=== PATIENT | female | born 1975 ===

== ENCOUNTER 2018-09-06 16:00 | Emergency (ER) | payer OTHER ==
[2016-10-22 08:04] VITALS: BMI 23.8
[2018-09-06 21:19] VITALS: BP 118/89; PULSE 120; RESP 18; TEMP 98.7
--- NOTE | 2018-09-07 00:18 | OBHP ---
Datetime: 09/06/2018 17:13 IP Adm Impression: Term, intrauterine ; No Active Labor; Intact Membranes IP Chief Complaint Other: sent for NST by doctor Theo IP Admit Plan: Discharge home Admit Comment, IP Provider: 43 year old female presents at 37 weeks gestation dated by LMP ( 12/21/17) for NST secondary to chronic HTN, AMA, previous . ANGELINE: 09/27/18. Patient reports movement this morning. Denies contractions, rupture of membranes and vaginal bleeding. Patient has no complaints at this time. Denies nausea, vomiting, fever, chills, blurred vision, spots, RUQ ab dominal pain, generalized edema. OB Hx: 2004: 37week female, 4lbs 5oz, , [facility] 2009 39 week 7lb male for arrest of decent, [facility] 2016, 6weeks, spontaneous , No D_C 2017: 23.4 weeks twins, Female x2, spontaneous , No D_C Obgyn: Dr. 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 - NST, no abnormalities - US, shows breech presentation - will speak with Dr Venegas - plan to discharge Pt seen, examined, assessment and plan discussed with Dr Leeroy Gutiérrez PGY1, Internal Medicine Resident Attending Note: patient seen, evaluated and examined by me with the Resident Patient is predominan tly Latvian-speaking, [id number] can capper ID [id number]. I agree with the above. Limited bedside ultrasound - confirms Breech preech presentation. Patient found to be with breech presentation in office today. To this end, will have repeat C/S at 39 weeks. All else as above. - Spoke with Dr. Venegas: advised her of Category 1 tracing and normal BPs on L_D; range 118-128/7 [id number], after first reading fo 147/97. Per Dr. Venegas, discharge home; follow up, 03/21. Plan: 1) dishcarge home 2) Reviewed S/S pre-eclampsia and labor 3) Keep appontment for 09/08/18 Pelvic Type - PN: Not Done Extremities - PN: Normal Abdomen - PN: Normal Back - PN: Normal Breast - PN: Not Done Lungs - PN: Normal Heart - PN: Normal Thyroid - PN: Normal Neurologic - PN: Normal HEENT - PN: Normal General - PN: Normal Presentation-Admit: Breech FHR - Baseline A Provider: 135 Contraction Comments Provider: none Comments, ACOG Physical Exam: Abdomen: Gravid. Soft. Non tender in all quadrants. Fundal height 36 c m Extremiites: no calf tenderness or edema. bilaterally All other systems reviewed and are negative Gestation - Est Wks by US: 37.5 IP Hx Assessment: The History has been Reviewed and is Current EGA AdmitDate IP: 37.0 Vital Signs Provider: Reviewed; Within Normal Limits IP Chief Complaint: evaluation NICHD Variability Prov Fetus A: Moderate 6-25bpm NICHD Accel Fetus A IP Provider: 15X15 FHR Category Provider Fetus A: Category I NICHD Decel Fetus A IP Provider: None Dilatation, Provider: deferred Genitourinary Exam: Not Done DTRs - PN: Normal
== END 2018-09-06 17:18 | disposition home or self-care (01) ==
LOC: C.EROB 16:00
DX: Z36.9 Encounter for antenatal screening, unspecified (principal); O16.3 Unspecified maternal hypertension, third trimester; Z3A.37 37 weeks gestation of pregnancy

== ENCOUNTER 2018-09-20 08:32 | Inpatient (IN) | payer OTHER ==
[2018-09-20 08:52] VITALS: BMI 31.1
[2018-09-20] MEDS ORDERED: Lactated Ringer's 1,000 ML IV ONE (09:20)
[2018-09-20] MEDS ORDERED: cefOXitin IV 2 gm in Dextrose 2 GM/50 ML BAG IVPB ONE (09:20)
[2018-09-20] MEDS ORDERED: Sodium Citrate/Citric Acid 15 ml Sol PO ONE (09:20)
--- NOTE | 2018-09-20 09:28 | CP.PCM.HP ---
History of Present Illness - History of Present Illness History of Present Illness: Mathew Peterson, DO, PGY-1 HEALTH CONSULTANT Admission History and Physical for Dr. Theo Green is a 43 who presents for elective caesarean delivery. She currently reports some abdominal pain with mild contractions. She otherwise offers no complaints and denies nausea/vomiting, CP, SOB, DYSON, changes in vision, vaginal bleeding, vaginal discharge. PMH: none Ob Hx: 4 prior pregnancies, 1st delivered by , 2nd delivered by c/s, 3rd had spontaneous at 6 weeks, 4th had twins with spontaneous at 23 weeks Data Abstractor Hx: No hx of STD, monogamous with , menstrual periods every 28 days and were regular prior to pregnancies PSH: c/s x 1 Fam Hx: father is alive and has hx of liver disease, mother All: NKA No home medications Present on Admission - Present on Admission Any Indicators Present on Admission: No History of DVT/PE: No History of Uncontrolled Diabetes: No Urinary Catheter: No Decubitus Ulcer Present: No Review of Systems - Constitutional Constitutional: absent: Chills, Fever - EENT Eyes: absent: Change in Vision - Cardiovascular Cardiovascular: absent: Chest Pain, Claudication, Diaphoresis, Dyspnea, Palpitations - Respiratory Respiratory: absent: Cough, Dyspnea, Wheezing - Gastrointestinal Gastrointestinal: Abdominal Pain (consistent with contractions). absent: Nausea, Vomiting - Reproductive: Female Reproductive:Female: absent: Vaginal Discharge - Menstruation Menstruation: absent: Abnormal Vaginal Bleeding - Integumentary Integumentary: absent: Alopecia Past Patient History - Infectious Disease Hx of Infectious Diseases: None - Past Social History Smoking Status: Never Smoked - PSYCHIATRIC Hx Substance Use: No - ANESTHESIA Hx Anesthesia: No Meds Allergies/Adverse Reactions: Allergies Allergy/AdvReac Type Severity Reaction Status Date / Time No Known Allergies Allergy Verified 08/07/16 10:50 Physical Exam - Constitutional Appears: No Acute Distress - Head Exam Head Exam: ATRAUMATIC, NORMOCEPHALIC - Eye Exam Eye Exam: EOMI, Normal appearance, PERRL - ENT Exam ENT Exam: Mucous Membranes Moist - Neck Exam Neck exam: Positive for: Full Rom, Normal Inspection - Respiratory Exam Respiratory Exam: Clear to Auscultation Bilateral, NORMAL BREATHING PATTERN. ab sent: Rales, Rhonchi, Wheezes - Cardiovascular Exam Cardiovascular Exam: REGULAR RHYTHM, RRR, +S1, +S2. absent: Diastolic murmur, Gallop, Rubs, Systolic Murmur - GI/Abdominal Exam Additional comments: changes c/w third trimester - Extremities Exam Extremities exam: Positive for: normal inspection. Negative for: pedal edema - Back Exam Back exam: FULL ROM, NORMAL INSPECTION - Neurological Exam Neurological exam: Alert, Oriented x3 - Psychiatric Exam Psychiatric exam: Normal Affect, Normal Mood - Skin Skin Exam: Dry, Intact, Warm Assessment & Plan - Assessment and Plan (Free Text) Assessment: 43 yo F is admitted for elective caesarean delivery. Plan: Caesarean delivery this AM scheduled for 1100. Cefoxitin single dose prior to OR Pepcid single dose, sodium citrate single dose Repeat third trimester labs Case and plan reviewed and discussed with my attending Dr. Theo Peterson, DO IM Resident PGY-1
[2018-09-20] MEDS: Lactated Ringer's 1,000 ML IV SCH ×3 (10:14→23:18)
--- NOTE | 2018-09-20 10:30 | OBHP ---
Datetime: 09/20/2018 10:24 IP Adm Impression: Term, intrauterine IP Admit Plan: Initiate Section protocol Admit Comment, IP Provider: 43 y/o at 39 wks previous c section presents with c/o ctx. Pt has n o c/o vagial bleeding or LOF. + FM. PMD: Unremarkable POBH: x1, C section x 1 PGYNH: Denies Labs; Please refer to H_P Exam: ABD: Soft, NT A/P: 43 y/o at 39 wks previous c section with ctx for admission for repeat c estion by Dr Ra beasley. Admit to L_D Blood work NPO IVF Pre-op antibiotics Pelvic Type - PN: Adequate Extremities - PN: Normal Abdomen - PN: Normal Back - PN: Normal Breast - PN: Normal Lungs - PN: Normal Heart - PN: Normal Thyroid - PN: Normal Neurologic - PN: Normal HEENT - PN: Normal General - PN: Normal FHR - Baseline A Provider: 130 Contraction Comments Provider: Irregular Gestation - Est Wks by US: 39.0 EGA AdmitDate IP: 39.0 Vital Signs Provider: Reviewed; Within Normal Limits IP Chief Complaint: Uterine contractions NICHD Variability Prov Fetus A: Moderate 6-25bpm NICHD Accel Fetus A IP Provider: 15X15 FHR Category Provider Fetus A: Category I NICHD Decel Fetus A IP Provider: None Genitourinary Exam: Normal DTRs - PN: Normal
[2018-09-20 10:37] LABS: BASO # 0.1 K/uL (0.0-0.2); BASO % 0.7 % (0.0-2.0); EOS # 0.2 K/uL (0.0-0.7); EOS % 1.9 % (0.0-4.0); HEMOGLOBIN 12.3 g/dL (11.0-16.0); LYMPH # 1.8 K/uL (1.0-4.3); LYMPH % 17.9 % (20.0-40.0); MEAN CELL VOLUME 82.9 fL (81.0-99.0); MEAN CORPUSCULAR HEMOGLOBIN 27.3 pg (27.0-31.0); MEAN CORPUSCULAR HGB CONC 32.9 g/dL (33.0-37.0); MEAN PLATELET VOLUME 8.6 fL (7.2-11.7); MONO # 0.6 K/uL (0.0-0.8); MONO % 5.6 % (0.0-10.0); NEUT # 7.4 K/uL (1.8-7.0); NEUT % 73.9 % (50.0-75.0); RBC 4.52 Mil/uL (3.80-5.20); RED CELL DISTRIBUTION WIDTH 15.9 % (11.5-14.5)
[2018-09-20] MEDS ORDERED: Bupivacaine HCl 15 mg/2 ml Spinal Inj ONE (10:45)
[2018-09-20] MEDS ORDERED: Morphine 1 mg/ml preservative-free Inj(Duramorph) ONE (10:48)
[2018-09-20 10:50] LABS: INR 0.9; PROTHROMBIN TIME 10.1 SECONDS (9.7-12.2)
[2018-09-20 10:53] LABS: ALBUMIN 3.6 g/dL (3.5-5.0); ALT/SGPT 52 U/L (9-52); AST/SGOT 33 U/L (14-36); BILIRUBIN,DIRECT 0.4 mg/dL (0.0-0.4); BLOOD UREA NITROGEN 7 mg/dL (7-17); CALCIUM 8.8 mg/dl (8.6-10.4); GFR NON-AFRICAN AMERICAN > 60; URIC ACID 3.6 mg/dL (2.2-7.5)
[2018-09-20] MEDS ORDERED: Sodium Citrate/Citric Acid 15 ml Sol ONE (11:31)
[2018-09-20] MEDS ORDERED: Oxytocin 20 units in LR 2,000 ML IV ONE (12:10)
[2018-09-20] MEDS ORDERED: Oxytocin 10 Units/ml Inj ONE (13:05)
[2018-09-20] MEDS ORDERED: Oxycodone/Acetaminophen 5/325 mg Tab PO PRN (14:18)
[2018-09-20 17:24] LABS: BLOOD UREA NITROGEN 8 mg/dL (7-17); GFR NON-AFRICAN AMERICAN > 60
[2018-09-20 17:31] LABS: SQUAMOUS EPITHIAL 7 /hpf (0-5); URINE BACTERIA OCC (<OCC); URINE BILIRUBIN 1+ (NEGATIVE); URINE CLARITY Hazy (Clear); URINE COLOR Amber (YELLOW); URINE GLUCOSE (UA) NORMAL (Normal); URINE LEUKOCYTE ESTERASE NEG Leu/uL (Negative); URINE PROTEIN 2+ mg/dL (NEGATIVE)
[2018-09-20 17:37] LABS: BASO # 0.1 K/uL (0.0-0.2); BASO % 0.8 % (0.0-2.0); EOS # 0.1 K/uL (0.0-0.7); EOS % 0.8 % (0.0-4.0); HEMOGLOBIN 11.1 g/dL (11.0-16.0); LYMPH # 1.6 K/uL (1.0-4.3); LYMPH % 9.3 % (20.0-40.0); MEAN CELL VOLUME 82.2 fL (81.0-99.0); MEAN CORPUSCULAR HEMOGLOBIN 27.1 pg (27.0-31.0); MEAN PLATELET VOLUME 7.9 fL (7.2-11.7); MONO % 5.4 % (0.0-10.0); NEUT # 14.7 K/uL (1.8-7.0); NEUT % 83.7 % (50.0-75.0); PLATELET COUNT 337 K/uL (130-400); RBC 4.08 Mil/uL (3.80-5.20); RED CELL DISTRIBUTION WIDTH 15.5 % (11.5-14.5)
[2018-09-20 17:40] LABS: WHITE BLOOD COUNT 17.5 K/uL (4.8-10.8)
[2018-09-20 17:54] LABS: URINE BLOOD TRACE (NEGATIVE)
[2018-09-20 19:06] LABS: BANDS 1 % (0-2); BASOPHIL 1 % (0-2); LYMPHOCYTE 5 % (20-40); MONOCYTE 8 % (0-10); NEUTROPHIL 85 % (50-75); PLATELET ESTIMATE NORMAL (NORMAL); TOTAL CELLS COUNTED 100
[2018-09-20 19:07] LABS: ANISOCYTOSIS SLIGHT; HYPOCHROMIC SLIGHT; POIKILOCYTOSIS SLIGHT
[2018-09-20] MEDS: cefOXitin IV 2 gm in Dextrose 2 GM/50 ML BAG IVPB SCH (20:22)
[2018-09-20] MEDS: Simethicone 80 mg Chewtab PO SCH (22:19)
[2018-09-21] MEDS: cefOXitin IV 2 gm in Dextrose 2 GM/50 ML BAG IVPB SCH (04:01)
--- NOTE | 2018-09-21 07:33 | CP.PCM.PN ---
Subjective - Date & Time of Evaluation Date of Evaluation: 09/21/18 Time of Evaluation: 07:30 - Subjective Subjective: Mathew Peterson DO, PGY-1 Chief Mechanical Engineer Progress Note for Dr. Venegas Patient was seen and examined at bedside this AM. She is s/p c/s POD 1. She complains of intermittent abdominal pain which is worse with movement this AM but denies nausea/vomiting. She is not yet passing gas and has not had a BM yet. She states she was able to breast feed successfully last night. Objective - Vital Signs/Intake and Output Vital Signs (last 24 hours): Temp Pulse Resp BP Pulse Ox 99.2 F 87 20 104/65 97 09/21/18 00:00 09/21/18 00:00 09/21/18 00:00 09/21/18 00:00 09/21/18 00:00 - Medications Medications: Current Medications Docusate Sodium (Colace) 100 mg PO BID [facility] Enoxaparin Sodium (Lovenox) 40 mg SC DAILY [facility] Lactated Ringer's (Lactated Ringer's) 1,000 mls @ 999 mls/hr IV .Q1H1M ONE Last Admin: 09/20/18 09:14 Dose: 999 mls/hr Lactated Ringer's (Lactated Ringer's) 1,000 mls @ 125 mls/hr IV .Q8H [facility] Last Admin: 09/20/18 23:18 Dose: 125 mls/hr Oxytocin (Pitocin 20 Units In Lr) 1,000 mls @ 125 mls/hr IV .Q8H [facility]; Protocol Last Admin: 09/20/18 14:30 Dose: 125 mls/hr Ibuprofen (Motrin Tab) 600 mg PO Q6H PRN PRN Reason: Pain, Mild (1-3) Influenza Virus Vaccine (Fluzone Quad [id number]) 60 mcg IM .ONCE ONE Stop: 09/23/18 10:01 Oxycodone/Acetaminophen (Percocet 5/325 Mg Tab) 1 tab PO Q4H PRN PRN Reason: Pain, moderate (4-7) Stop: 09/23/18 14:19 Multivit/Folic Acid/Iron () 1 tab PO DAILY [facility] Simethicone (Mylicon Chew Tab) 80 mg PO QID [facility] Last Admin: 09/20/18 22:19 Dose: Not Given - Labs Labs: 09/20/18 17:34 09/20/18 17:02 PT 10.1 SECONDS (9.7-12.2) 09/20/18 10:23 INR 0.9 09/20/18 10:23 APTT 27 SECONDS (21-34) 09/20/18 10:23 - Constitutional Appears: Non-toxic, No Acute Distress - Head Exam Head Exam: ATRAUMATIC, NORMOCEPHALIC - Eye Exam Eye Exam: EOMI, Normal appearance, PERRL - ENT Exam ENT Exam: Mucous Membranes Moist - Neck Exam Neck Exam: Full ROM, Normal Inspection - Respiratory Exam Respiratory Exam: Clear to Ausculation Bilateral, NORMAL BREATHING PATTERN. absent: Rales, Rhonchi, Wheezes - Cardiovascular Exam Cardiovascular Exam: REGULAR RHYTHM, RRR, +S1. absent: Gallop, Rubs, Murmur - GI/Abdominal Exam GI & Abdominal Exam: Soft, Hypoactive Bowel Sounds - Extremities Exam Extremities Exam: Normal Inspection. absent: Pedal Edema - Back Exam Back Exam: Full ROM, NORMAL INSPECTION - Neurological Exam Neurological Exam: Alert, Awake, Oriented x3 - Psychiatric Exam Psychiatric exam: Normal Affect, Normal Mood - Skin Skin Exam: Dry, Intact, Warm Assessment and Plan - Assessment and Plan (Free Text) Assessment: 43 yo F now is s/p caesarean delivery POD 1. Plan: Patient tolerating diet well with intermittent abdominal pain but without nausea/vomiting. Continue pain control PRN. Continue bowel regimen with colace, simethicone Continue to monitor through POD 3 in post- unit Case and plan reviewed and discussed with Dr. Theo Peterson DO IM Resident PGY-1
[2018-09-21 07:40] LABS: HEMOGLOBIN 10.5 g/dL (11.0-16.0); MEAN CORPUSCULAR HEMOGLOBIN 27.3 pg (27.0-31.0); MEAN CORPUSCULAR HGB CONC 33.3 g/dL (33.0-37.0); MEAN PLATELET VOLUME 8.2 fL (7.2-11.7); RBC 3.83 Mil/uL (3.80-5.20); RED CELL DISTRIBUTION WIDTH 15.7 % (11.5-14.5); WHITE BLOOD COUNT 12.4 K/uL (4.8-10.8)
[2018-09-21 07:59] LABS: ALB/GLOB RATIO 0.8 (1.0-2.1); ALBUMIN 2.6 g/dL (3.5-5.0); ALT/SGPT 43 U/L (9-52); AST/SGOT 40 U/L (14-36); BLOOD UREA NITROGEN 6 mg/dL (7-17); CALCIUM 7.9 mg/dl (8.6-10.4); GFR NON-AFRICAN AMERICAN > 60
[2018-09-21 09:02] LABS: SQUAMOUS EPITHIAL < 1 /hpf (0-5); URINE BILIRUBIN NEGATIVE (NEGATIVE); URINE BLOOD NEGATIVE (NEGATIVE); URINE CLARITY Clear (Clear); URINE COLOR Yellow (YELLOW); URINE GLUCOSE (UA) NORMAL (Normal); URINE LEUKOCYTE ESTERASE TRACE Leu/uL (Negative); URINE PROTEIN NEGATIVE (NEGATIVE); URINE UROBILINOGEN NORMAL mg/dL (0.2-1.0)
[2018-09-21] MEDS: Prenatal Multivit/Folic Acid/Iron Tab PO SCH (10:57)
[2018-09-21] MEDS: Simethicone 80 mg Chewtab PO SCH ×5 (10:57→21:26)
[2018-09-21] MEDS: Enoxaparin 40 mg Syringe SC SCH (14:19)
--- NOTE | 2018-09-21 20:47 | OP ---
PROCEDURE DATE: 09/20/2018 PREOPERATIVE DIAGNOSIS: A 43-year-old female, 5, para 4 that came in for an elective repeat section. POSTOPERATIVE DIAGNOSES: Elective repeat section, noted to have multiple adhesions. The bladder was very struck up in the uterus. The omentum was all around the uterus as well as the small bowel. PROCEDURE: A repeat low-transverse section as well as lysis of adhesions. SURGEON: Lynn Venegas MD BACKEND TESTER: Resident TYPE OF ANESTHESIA: Epidural. COMPLICATIONS: None. ESTIMATED BLOOD LOSS: 500 mL. FLUIDS: 1500 mL. URINE OUTPUT: 300 mL of clear urine at the end of the procedure. INDICATION: A 43-year-old female 5, para 4 at 39 weeks' gestation that came in for a repeat . She was informed of the risk factors, benefits, and alternatives of the procedure. Risk factors included infection, bleeding, damage to the surrounding organs and tissues especially known that she had prior surgery, so she can have dense scar tissue, she was well informed as well as risk factors included hysterectomy, damage to surrounding organs such as the bladder and the small bowel and the large bowel. Risks factors explained but not limited to. FINDINGS: The patient had a male in cephalic presentation. The survival equipment repairer was present at the time of the delivery. Apgars were 9 and 9. It was noted again that she had multiple adhesions. DESCRIPTION OF PROCEDURE: The patient was then taken to the operating room where an epidural anesthesia was found to be adequate. She was then prepped and draped in a normal sterile fashion in a dorsal supine position with a leftward tilt. A Pfannenstiel incision was made with a scalpel and carried to the underlying layers of the fascia with the Bovie. The fascia was then excised in the midline. The incision extended laterally with the Argueta scissors. The superior aspect of the fascial incision was then grasped with Shamar clamps, elevated, and the underlying rectus muscle was off bluntly. Attention was then turned to the inferior aspect of the incision, which in a similar fashion was grasped, tented up with Shamar clamps, and the rectus muscle was dissected off bluntly. The rectus muscle was then in the midline. The peritoneum was identified, tented up and entered sharply with the Metzenbaum scissors. The peritoneum incision was extended superiorly and inferiorly with good visualization of the bladder. It was noted that the bladder was very very struck up, so lysis of adhesions was performed. Excellent hemostasis was noted. The bladder was brought down as much as I could. We tried to perform a vesicular uterine, peritoneum was identified, grasped with pickups and entered sharply with the Metzenbaum. The incision was extended laterally, and the bladder flap was created digitally. The bladder blade was then re-entered, and the lower uterine segment was incised in a transverse fashion with the scalpel. The uterine incision was then extended laterally with the bandage scissors. The bladder blade was then removed. The infant head was delivered atraumatically. The nose and mouth were suctioned with DeLee suction trap. The cord was clamped and cut. The infant was handed off to the awaiting survival equipment repairer. The placenta was then removed manually. The uterus was exteriorized and cleaned of all clots and debris. The uterine incision was repaired with a 1-0 Vicryl in a running locking fashion and a second layer of 1-0 Monocryl in order to obtain excellent hemostasis. The gutters were all cleaned of clots and debris. The peritoneum was then closed with 2-0 chromic. The fascia was reapproximated with 0 Vicryl in a running locking fashion. The skin was closed with a 4-0 Monocryl. The patient tolerated the procedure well. Sponge, lap, and needle count were correct x2. The patient was then taken to the recovery room in stable condition and instructed to follow up in the office in approximately two weeks. Lynn Venegas MD
[2018-09-22 07:51] LABS: HEMOGLOBIN 10.2 g/dL (11.0-16.0); MEAN CELL VOLUME 82.8 fL (81.0-99.0); MEAN CORPUSCULAR HEMOGLOBIN 27.6 pg (27.0-31.0); MEAN CORPUSCULAR HGB CONC 33.3 g/dL (33.0-37.0); MEAN PLATELET VOLUME 7.8 fL (7.2-11.7); RBC 3.7 Mil/uL (3.80-5.20); RED CELL DISTRIBUTION WIDTH 15.6 % (11.5-14.5); WHITE BLOOD COUNT 11.7 K/uL (4.8-10.8)
[2018-09-22] MEDS: Simethicone 80 mg Chewtab PO SCH ×4 (09:37→21:14)
[2018-09-22] MEDS: Prenatal Multivit/Folic Acid/Iron Tab PO SCH (09:38)
[2018-09-22] MEDS: Enoxaparin 40 mg Syringe SC SCH (09:40)
[2018-09-22 11:29] VITALS: RESP 18
[2018-09-22] MEDS: Oxycodone/Acetaminophen 5/325 mg Tab PO SCH ×2 (15:39→21:15)
--- NOTE | 2018-09-22 17:14 | OBPPN ---
Datetime: 09/22/2018 13:55 PP Pain Prov: Within normal limits PP Nausea Prov: Denies PP Flatus Prov: Yes PP BM Prov: Yes PP Breasts Prov: Not Done PP Heart Prov: Normal PP Lungs Prov: Normal PP Abdomen/Uterus Prov: Normal PP Lochia Prov: Normal PP Vulva/Perineum Prov: Normal PP CVA Tenderness Prov: Normal PP Extremities Prov: Normal PP C/S Incision Prov: Normal PP Progress Prov: Normal PP Impression Prov: Normal progression; difficulties PP Plan Prov: Continue present management; consult PP Progress Note Prov: Pt seen and examined per Dr. Venegas request POD # 2 States pain not controlled on Just Motrin aos unable to move and walk Will change pain meds to ATC Percocet and Motrin Q 6 hrs and alternating Q 3 hrs Fontaine Catheter still in place as per Dr. Venegas since dense scar tissue encounter at time of C/S Urine clear and no Hematuria. Culture Negative Urine output excellent more than 100 mls per hour and Dr. Venegas requested to D/C Fontaine Catheter PP H_H 10.2/30.6 A+ difficulties and will consult Nurse Stable and Satisfactory condition and Recovery Encourage ambulation and po water intake Advance care Anticipate discharge home in AM IP PP Procedures: None
[2018-09-23 00:16] VITALS: O2SAT 98
[2018-09-23] MEDS: Oxycodone/Acetaminophen 5/325 mg Tab PO SCH (03:11)
[2018-09-23] MEDS: Simethicone 80 mg Chewtab PO SCH ×2 (10:00→14:00)
[2018-09-23] MEDS ORDERED: Influenza Vaccine 60 MCG/0.5 ML SYR (3 yr & up) IM ONE (10:00)
[2018-09-23] MEDS: Prenatal Multivit/Folic Acid/Iron Tab PO SCH (10:00)
[2018-09-23] MEDS: Enoxaparin 40 mg Syringe SC SCH (10:00)
--- NOTE | 2018-09-23 16:59 | OBPPN ---
Datetime: 09/23/2018 16:47 PP Pain Prov: Within normal limits PP Nausea Prov: Denies PP Flatus Prov: Yes PP BM Prov: Yes PP Breasts Prov: Normal PP Heart Prov: Normal PP Lungs Prov: Normal PP Abdomen/Uterus Prov: Normal PP Lochia Prov: Normal PP Vulva/Perineum Prov: Not Done PP CVA Tenderness Prov: Normal PP Extremities Prov: Normal PP C/S Incision Prov: Normal PP Progress Prov: Normal PP Comments Phys Exam Prov: Abdomen: Obese. Soft., Non distended. Fundus firm, minimally tender, mob ile, at umbilicus. Incision with subcuticular closure - clean, dry and intact. Minimal lochia rubra Extremities: no calf tenderness Alll other systems reviewed and are negative PP Impression Prov: Normal progression PP Plan Prov: Discharge PP Progress Note Prov: Asked by Dr. Venegas to evaluate patient for discharge Patient received in room 453, sitting in chair holding . Younger child and also pre sent. Patient in good spirits - looking forward to going home. Denies headaches, lightheadedness, di zziness; nausea or vomiting. Ambulating and voiding without difficulties. (+) flatus; (+) BM. Breastf eeding. Reports abdomnal/ uterine cramping is relieved with pain meds. P.E.: as above. Mildy obese in NAD. Awake, alert, oriented to time, person, place. Pleasant and co operative - POD#@ H/H stable at 10.2/30.0 Rh(+) Assessment: POD#3, 43 y.o. P3, S/P C/S #2 with extensive lysis of adhesions. Afebrile, vital signs stable. Returning GI and functions. Acute blood loss anemia - patient is asymptomatic and hemodyn amically stable. Patient is clinically stable. Plan: 1) Discharge home 2) F/U Dr. Venegas, , 09/29, 2:00 pm, [address] office 3) See full discharge instructions - as per Dr. Venegas Vital Signs Provider PP: Reviewed
[2018-09-23 22:46] VITALS: BP 108/74; PULSE 100; TEMP 98.5
== END 2018-09-23 17:30 | disposition home or self-care (01) | DRG 787 ==
LOC: C.EROB 08:32 → C.4D 08:40 → C.4M 18:39
PROVIDERS: ADMIT Obstetrics & Gynecology; ATTEND Obstetrics & Gynecology
PROC: 10D00Z1 Extraction of Products of Conception, Low, Open Approach (ICD-10-PCS; principal; 2018-09-20)
PROC: 0DNW0ZZ Release Peritoneum, Open Approach (ICD-10-PCS; 2018-09-20)
DX: O34.211 Maternal care for low transverse scar from previous cesarean delivery (principal); D62 Acute posthemorrhagic anemia; O99.02 Anemia complicating childbirth; O99.214 Obesity complicating childbirth; E66.9 Obesity, unspecified; Z37.0 Single live birth; Z3A.39 39 weeks gestation of pregnancy; O99.62 Diseases of the digestive system complicating childbirth; K66.0 Peritoneal adhesions (postprocedural) (postinfection)